=== PATIENT | female | born 1975 | race Caucasian/White ===

== ENCOUNTER 2021-05-01 13:24 | Emergency (ER) | payer OTHER, SELFPAY ==
--- NOTE | 2021-05-01 13:28 | ED.SKABFB ---
HPI - Skin/Abscess/Foreign Bdy General Chief complaint: Wound/Laceration Stated complaint: Laceration to Wrist Time Seen by Provider: 05/01/21 13:26 Source: patient Mode of arrival: ambulatory Limitations: no limitations History of Present Illness HPI narrative: Ms. Oneal is a 45-year-old female patient presenting to the clinic today with complaints of a left wrist laceration that occurred this morning. She reports that she was pushing down the trash and she forgot that there was some broken glass in the trash can and cut it on this. Her tetanus shot is up-to-date state that it was given approximately 3 years ago. Related Data Home Medications Medication Instructions Recorded Confirmed No Home Medications 05/01/21 05/01/21 Allergies Allergy/AdvReac Type Severity Reaction Status Date / Time codeine Allergy Swelling Verified 05/01/21 13:42 of Lip/Tongue/Throat Review of Systems Review of Systems: Pertinent positives per HPI. Patient denies any fever, chills, rash, headache, visual changes, dizziness, cough, runny nose, sore throat, shortness of breath, chest pain, palpitations, nausea, vomiting, diarrhea, constipation, abdominal pain, or any urinary issues. PMFSH Comments At the time of my signature, I reviewed and agree with the nursing past medical, surgical, social, and family history. There is no relevant family history pertinent to the patient complaint. Exam Narrative: General: Well-developed, well nourished, in no apparent distress Cardio: Regular rate and rhythm, s1 and s2 normal, no murmur appreciated. Resp: Clear to auscultation bilaterally, no rhonchi, rales, wheezing or rubs. Integumentary: Jolley, warm, and dry, laceration with mild gaping to the left volar wrist. Bleeding controlled. Laceration portion that is needing repaired is approximately 2-1/2 cm. Total laceration approximately 6 cm. Laceration repair performed in the clinic Course Course Emergency Course: Portions of this record may have been created with voice recognition software. Level of Care: Express Care Visit Vital Signs Vital signs: Vital signs reviewed Procedures Laceration Laceration 1: Date: 05/01/21 Time: 13:50 Site: upper extremity (Left dorsal wrist) Side (If applicable): left Size (cm): 6.0 Description: linear and clean Depth: simple, single layer Amount of anesthesia used (mL): 1 Pre-repair: irrigated ====== Skin Level ====== Skin layer closed with: nylon Size (cm): 4-0 Number of sutures: 3 Technique: simple, interrupted ====== Subcutaneous Layer ====== ====== Muscle Layer ====== ====== Tendon Layer ====== Dressing: Verbal consent obtained for laceration repair. Risk and benefits explained and patient voiced understanding. Area was cleansed with technic care and was prepped and draped using sterile technique. A 4-0 suture on a p3 needle was used to place (3) interrupted sutures bringing the wound edges together- well approximated. Patient tolerated procedure well. REED and sterile dressing applied. MDM - Skin/Abscess/Foreign Bdy MDM Narrative Medical decision making narrative: Simple laceration repair completed in the clinic bring wound edges together approximately using 3 interrupted simple sutures. Tetanus up-to-date Differential Diagnosis Differential diagnosis: Likely abscess of skin or subcutaneous tissue and other (Complex laceration) Discharge Plan Discharge Clinical Impression: Laceration Patient Disposition: Home, Self-Care Condition: Stable Instructions: Antibiotic Form, Laceration (ED) Additional Instructions: Keep wound clean and dry. Leave surgical dressing on for 24 hours May remove after 24 hours and wash with soap and water Sutures out in 7 days. Watch for signs and symptoms of infection such as redness, swelling, increasing pain, or purulent drainage.
[2021-05-01 13:30] VITALS: BP 146/85; PULSE 60; RESP 16; TEMP 37.5; O2SAT 98
== END 2021-05-01 14:04 | disposition home or self-care (01) ==
PROVIDERS: Emergency Provider Nurse Practitioner Family
DX: S61.512A Laceration without foreign body of left wrist, initial encounter (principal); W25.XXXA Contact with sharp glass, initial encounter
CPT/HCPCS: 12002; 99212; G0463

== ENCOUNTER 2021-12-18 17:08 | Emergency (ER) | payer OTHER, SELFPAY ==
--- NOTE | ~2021-12-18 | XR_ITS ---
EXAMINATION: XR hand LT min 3V DATE: 12/18/2021 17:35 INDICATION: Left hand injury and pain. TECHNIQUE: 3 views of left hand were obtained. COMPARISON: None. FINDINGS: Bone alignment is normal. No fracture. There is a punctate calcification palmar to base of second middle phalanx. There is a 7 mm nonaggressive lytic lesion with sclerotic margin in first prox imal phalanx, likely an enchondroma. There is a 6 mm nonaggressive lytic lesion with sclerotic margin in first metacarpal, likely an enchondroma. There is mild osteoarthritis of first carpometacarpal todd int and second metacarpophalangeal joint. IMPRESSION: 1. Punctate calcification palmar to base of second middle phalanx, which may be a chip fracture fragm ent or a chronic finding. 2. Mild polyarticular osteoarthritis. Reviewed, dictated and finalized at location A. IMPRESSION: 1. Punctate calcification palmar to base of second middle phalanx, which may be a chip fracture fragment or a chronic finding. 2. Mild polyarticular osteoarthritis.
[2021-12-18 17:21] VITALS: BP 117/103; PULSE 87; RESP 16; TEMP 36.9; O2SAT 98
--- NOTE | 2021-12-18 17:41 | ED.GENADULT ---
HPI - General Adult General Chief complaint: Extremity Injury, Upper Stated complaint: left fingers smashed in door at work Source: patient Mode of arrival: ambulatory Limitations: no limitations History of Present Illness HPI narrative: Patient presents for evaluation of pain in the second and third digits of her left hand. She indicates she was working today at [employer] at the time of the injury. She was walking through a doorway, pushing the door open with her right hand and attempting to catch the door behind her with her left hand. The 2nd and 3rd digits of the left hand got slammed in the door. Since that time she reports decreased range of motion and pain in the affected digits. She rates her pain 8 out of 10 in severity. No paresthesias. She is right-hand dominant. She took ibuprofen for pain without considerable improvement in her symptoms thereafter. No additional complaints or concerns. Related Data Allergies Allergy/AdvReac Type Severity Reaction Status Date / Time codeine Allergy Swelling Verified 05/01/21 13:42 of Lip/Tongue/Throat Review of Systems Review of Systems: CONSTITUTIONAL: Denies fever, chills, or sweats. EYES: Denies visual changes, redness, or discharge. ENT: Denies rhinorrhea, congestion, sore throat, or otalgia. CARDIOVASCULAR: Denies chest pain, palpitations, or edema. RESPIRATORY: Denies cough or dyspnea. GASTROINTESTINAL: Denies abdominal pain, nausea, vomiting, or diarrhea. GENITOURINARY: Denies dysuria or hematuria. SKIN: Denies rash or itching. MUSCULOSKELETAL: Reports pain in the second and third digits of her left hand NEUROLOGIC: Denies headache, numbness, dizziness, or weakness. PSYCHIATRIC: Denies anxiety or depression. [facility] Past Medical History Medical History (Updated 12/18/21 @ 18:02 by LAURENCE Bocanegra, RAN) Finger fracture No pertinent past medical history Surgical History Surgical History History of cholecystectomy History of hysterectomy Family History Family History Mother Family history non-contributory Social History Social History Smoking status: Current every day smoker Tobacco type: cigars and e-cigarettes/vaping Alcohol intake: current Alcohol use details: rare Substance use: never Living arrangements: with family Gender identity (if verbalized by the patient): Female Sexual Orientation (if Verbalized by the Patient): Lesbian, Hess, or Homosexual Exam Narrative: GENERAL: Well-appearing, well-nourished, and in no acute distress. HEAD: Normocephalic, atraumatic. EYES: PERRLA and EOMI. ENT: Nares clear, no rhinorrhea or epistaxis. Mucous membranes moist. Oropharynx without tonsillar hypertrophy exudate or other lesions. Bilateral TMs pearly barrientos nonbulging NECK: Supple. No adenopathy or masses. No carotid bruits or JVD CHEST: Clear to auscultation. No respiratory distress. No wheezes rales or rhonchi HEART: Regular rate and rhythm. No murmur heard. Normal peripheral pulses. ABDOMEN: Soft, nontender, nondistended, normal active bowel sounds. EXTREMITIES: Decreased range of motion of the PIP and DIP joints of the second and third digits of the left hand. There is tenderness in the proximal, middle, and distal phalanges of the second and third digits of the left hand. There is trace swelling noted. SKIN: Warm, dry, no rash. NEURO: No focal deficits. Alert and oriented x3. PSYCH: Normal mood and affect. Course Course Emergency Course: This is a 46-year-old female who presented for evaluation of pain in the second and third digits following an injury at work. There was questionable fracture of the 2nd middle phalanx. 2nd and 3rd digit were placed in aluminum finger splints and digits were taped together. She had minimal improvement wit
== END 2021-12-18 18:17 | disposition home or self-care (01) ==
PROVIDERS: Emergency Provider Nurse Practitioner
DX: S62.621A Displaced fracture of middle phalanx of left index finger, initial encounter for closed fracture (principal); X58.XXXA Exposure to other specified factors, initial encounter; Y99.0 Civilian activity done for income or pay
CPT/HCPCS: 29130; 73130; 99214; G0463

== ENCOUNTER 2022-07-08 08:29 | Emergency (ER) | payer OTHER, SELFPAY ==
[2022-07-08 08:38] VITALS: BP 119/81; PULSE 88; RESP 20; TEMP 36.7; O2SAT 98
--- NOTE | 2022-07-08 09:04 | ED.GENADULT ---
HPI - General Adult General Chief complaint: Upper Respiratory Infection Stated complaint: sore throat/white on tongue Source: patient and RN notes reviewed History of Present Illness HPI narrative: 47 yo F presents to urgent care with complaints of a sore throat and the feeling her throat is swollen. Pt states this all started yesterday. Pt denies any ear pain, congestion, fevers, chills, dental pain, or trouble breathing. Pt states she feels like she has to clear her throat but can't. Pt denies any chest pain, SOB, or vomiting. Pt has not taken anything for her pain. Related Data Home Medications Medication Instructions Recorded Confirmed lamotrigine 100 mg tablet 100 mg DAILY 07/08/22 levothyroxine 50 mcg tablet 50 mcg DAILY 07/08/22 Allergies Allergy/AdvReac Type Severity Reaction Status Date / Time codeine Allergy Swelling Verified 07/08/22 09:04 of Lip/Tongue/Throat Review of Systems Review of Systems: Pertinent positives and pertinent negatives per HPI. [facility] Past Medical History Medical History (Updated 07/08/22 @ 09:31 by Ade Hines, SIDNEY) Finger fracture No pertinent past medical history Surgical History Surgical History History of cholecystectomy History of hysterectomy Family History Family History Mother Family history non-contributory Social History Social History Smoking status: Current every day smoker Tobacco type: cigars and e-cigarettes/vaping Alcohol intake: current Alcohol use details: rare Substance use: never Living arrangements: with family Gender identity (if verbalized by the patient): Female Sexual Orientation (if Verbalized by the Patient): Lesbian, Hess, or Homosexual Comments At the time of my signature, I reviewed and agree with the nursing past medical, surgical, social, and family history. There is no relevant family history pertinent to the patient complaint. Exam Narrative: GENERAL: This is a well-nourished, well-developed patient, in no apparent distress. HEAD: normocephalic, atraumatic. EYES: Sclera clear/white. Vision is grossly intact. EARS: External ears normal, auditory canals clear and without drainage, TMs normal without perforation. Hearing grossly intact. NOSE: External nose normal with no obvious nasal discharge, nares without redness, no rhinorrhea. THROAT: Mucous membranes moist, posterior pharynx slightly erythremic. Few exudate on left. no abscesses noted. Pt continues to try and clear throat. Has muffled voice. NECK: Neck supple, non-tender without lymphadenopathy, masses or thyromegaly. no anterior swelling noted. CARDIOVASCULAR: Regular rate and rhythm without murmurs, gallops, or rubs. RESPIRATORY: Clear to auscultation. Breath sounds equal bilaterally. No wheezes, rales, stridor, or rhonchi. SKIN: warm, intact with no suspicious lesions or rash, good texture and turgor. NEURO: awake, alert, and oriented to person, place and time. There were no obvious focal neurologic abnormalities. Course Course Level of Care: Express Care Visit Vital Signs Vital signs: Vital Signs Temperature 98.0 F 07/08/22 08:38 Pulse Rate 88 07/08/22 08:38 Respiratory Rate 20 07/08/22 08:38 Blood Pressure 119/81 07/08/22 08:38 Pulse Oximetry 98 07/08/22 08:38 Oxygen Delivery Room Air 07/08/22 08:38 Temperature 98.0 F 07/08/22 08:38 Pulse Rate 88 07/08/22 08:38 Respiratory Rate 20 07/08/22 08:38 Blood Pressure 119/81 07/08/22 08:38 Pulse Oximetry 98 07/08/22 08:38 Oxygen Delivery Room Air 07/08/22 08:38 reviewed. Medical Decision Making MDM Narrative Medical decision making narrative: Pt not drooling. No trismus, tongue elevation, or abscess appreciated. Pt able to swallow prednisone
[2022-07-08] MEDS: predniSONE 20 MG TABLET 60 MG PO (09:14)
--- NOTE | 2022-07-08 09:17 | PC.NURSE ---
Pt given PO prednisone. Pt was able to swallow pills with some difficulty. Pt gagged multiple times, but did not vomit or spit pills out. After multiple drinks of water pt finally felt like she had completely swallowed pills. [employer]RAFTER aware and is speaking with pt.
== END 2022-07-08 09:40 | disposition short-term general hospital (02) ==
PROVIDERS: Emergency Provider Nurse Practitioner Family
DX: J02.9 Acute pharyngitis, unspecified (principal); R13.10 Dysphagia, unspecified; F17.290 Nicotine dependence, other tobacco product, uncomplicated
CPT/HCPCS: 87081; 87880; 99213; G0463; J7512

== ENCOUNTER 2022-09-10 11:49 | Emergency (ER) | payer OTHER, SELFPAY ==
--- NOTE | 2022-09-10 11:53 | ED.EAR ---
HPI - Ear Problem General Chief complaint: Ear Stated complaint: Right Ear Pain Time Seen by Provider: 09/10/22 12:16 Source: patient and RN notes reviewed Mode of arrival: ambulatory Limitations: no limitations History of Present Illness HPI Narrative: 47-year-old female presents with concern for right ear pain. She reports a popping sensation. Reports her ear feels tender when touched. She denies any recent cold symptoms, runny nose, stuffy nose. Denies fever. Denies drainage from the ear. She denies prolonged exposure water MD Complaint: ear pain Related Data Allergies Allergy/AdvReac Type Severity Reaction Status Date / Time codeine Allergy Swelling Verified 07/08/22 09:04 of Lip/Tongue/Throat Review of Systems Review of Systems: CONSTITUTIONAL: Denies malaise, chills, sweats, or fever. EYES: Denies visual changes, redness, or discharge. ENT: Denies rhinorrhea, congestion, sinus pain, and sore throat. Reports right ear pain CARDIOVASCULAR: Denies chest pain, palpitations, or edema. RESPIRATORY: Denies cough. Denies dyspnea. GASTROINTESTINAL: Denies abdominal pain, nausea, vomiting, diarrhea SKIN: Denies rash or itching. MUSCULOSKELETAL: Denies myalgia. NEUROLOGIC: Denies headache. All systems reviewed & are unremarkable except as noted in HPI and below PMFSH Past Medical History Medical History (Updated 09/10/22 @ 12:22 by Lamar Aguirre NP) Finger fracture No pertinent past medical history Surgical History Surgical History History of cholecystectomy History of hysterectomy Family History Family History Mother Family history non-contributory Social History Social History Smoking status: Current every day smoker Tobacco type: cigars and e-cigarettes/vaping Alcohol intake: current Alcohol use details: rare Substance use: never Living arrangements: with family Gender identity (if verbalized by the patient): Female Sexual Orientation (if Verbalized by the Patient): Lesbian, Hess, or Homosexual Comments At time of signature, agree with nursing past medical, surgical, social and family history. There is no relevant family history pertinent to the presenting complaint Exam Narrative: GENERAL: Well-appearing, well-nourished, and in no acute distress. HEAD: Normocephalic EYES: PERRLA, conjunctivae clear ENT: Nares clear. Mucous membranes moist. Right tM pearly barrientos with dull light reflex, sharp reflex on the left; mild tragal tenderness with mild EAC edema, no erythema or drainage noted. Oropharynx not erythematous without lesions. Tonsils not enlarged and without exudate, no drooling, no hoarseness, no trismus, uvula midline. NECK: Supple. No lymphadenopathy CHEST: No respiratory distress, speaks in full sentences. HEART: Regular rate and rhythm. No murmur heard. SKIN: Warm, dry, no rash. NEURO: Alert and oriented x3. PSYCH: Normal mood and affect Course Course Emergency Course: Patient is aware of diagnosis, understands and agrees to treatment plan. Anticipatory guidance given. Patient agrees to follow-up as directed and is aware of reasons to seek care at the emergency department. Portions of this record may have been created with voice recognition software Level of Care: Express Care Visit Vital Signs Vital signs: Reviewed. Medical Decision Making MDM Narrative Medical decision making narrative: Differential diagnosis considered: Echols virus, strep pharyngitis, allergic rhinitis, upper respiratory tract infection, sinusitis, rhinosinusitis, nasopharyngitis. viral pharyngitis, otitis media, otitis externa, otitis effusion, cerumen impaction, foreign body. Exam findings show no acute concerns or changes; patient is non-toxic appearing and is in no distress. Patient is lalitha
[2022-09-10 12:00] VITALS: BP 142/76; PULSE 78; RESP 16; TEMP 36.6; O2SAT 98
== END 2022-09-10 12:27 | disposition home or self-care (01) ==
PROVIDERS: Emergency Provider Nurse Practitioner
DX: H92.01 Otalgia, right ear (principal); F17.290 Nicotine dependence, other tobacco product, uncomplicated
CPT/HCPCS: 99213; G0463

== ENCOUNTER 2022-10-11 10:09 | Emergency (ER) | payer OTHER, SELFPAY ==
[2022-10-11 10:15] VITALS: BP 132/87; PULSE 72; RESP 20; TEMP 36.7; O2SAT 98
--- NOTE | 2022-10-11 10:29 | ED.EXTPRO ---
HPI - Extremity Problem General Chief complaint: Extremity Problem,Nontraumatic Stated complaint: Left arm swollen/pain Time Seen by Provider: 10/11/22 10:41 Source: patient and RN notes reviewed Mode of arrival: ambulatory Limitations: no limitations History of Present Illness HPI Narrative: 47-year-old female presents with concern for left arm pain. She reports pain starts in the mid upper arm, hurts worse when she raises the arm or flexes her bicep. She reports pain radiates up ports her shoulder neck and down towards her elbow. She reports it is tender to touch. 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 She reports she has been using Tylenol and prevent. She denies chest pain, shortness of breath. She reports that her arm feels swollen. She denies fever, aches, chills, sweats MD Complaint: extremity pain Related Data Allergies Allergy/AdvReac Type Severity Reaction Status Date / Time codeine Allergy Swelling Verified 10/11/22 10:24 of Lip/Tongue/Throat Review of Systems Review of Systems: CONSTITUTIONAL: Denies malaise, chills, sweats, or fever. SKIN: Denies rash or itching, open skin, laceration, abrasion, redness, warmth MUSCULOSKELETAL: Reports left arm pain NEUROLOGIC: Denies numbness, weakness All systems reviewed & are unremarkable except as noted in HPI and below PMFSH Past Medical History Medical History (Updated 10/11/22 @ 10:50 by Lamar Aguirre NP) Finger fracture No pertinent past medical history Surgical History Surgical History History of cholecystectomy History of hysterectomy Family History Family History Mother Family history non-contributory Social History Social History Smoking status: Current every day smoker Tobacco type: cigars and e-cigarettes/vaping Alcohol intake: current Alcohol use details: rare Substance use: never Living arrangements: with family Gender identity (if verbalized by the patient): Female Sexual Orientation (if Verbalized by the Patient): Lesbian, Hess, or Homosexual Comments At time of signature, agree with nursing past medical, surgical, social and family history. There is no relevant family history pertinent to the presenting complaint Exam Narrative: GENERAL: Well-appearing, well-nourished, and in no acute distress. HEAD: Normocephalic, atraumatic. EYES: PERRLA, conjunctivae clear NECK: Supple. CHEST: Speaks in full sentences. No respiratory distress. HEART: Regular rate and rhythm. Normal and equal peripheral pulses. EXTREMITIES: Left arm has normal gross strength and sensation, limited range of motion, likely due to pain. No noticeable edema, erythema, or ecchymosis. 5/5 strength with arm flexion, shoulder abduction and adduction. Normal sensation with sensitivity to light touch and pain. Mid upper arm tenderness. No open wounds, no skin tenting, no devitalized tissue or atrophy, no trophic changes, no obvious deformity, alignment normal, nearby joints and structures intact. Distal pulses palpable and equal bilaterally, skin warm, dry, pink. Capillary refill less than 3 seconds. SKIN: Warm, dry, no rash. NEURO: Alert and oriented x3. PSYCH: Normal mood and affect Course Course Emergency Course: Patient is aware of diagnosis, understands and agrees to treatment plan. Anticipatory guidance given. Patient agrees to follow-up as directed and is aware of reasons to seek care at the emergency department. Portions of this record may have been created with voice recognition software Level of Care: Express Care Visit Vital Signs Vital signs: Reviewed. MDM - Extremity (Nontraumatic) MDM Narrative Medical decision making na
== END 2022-10-11 10:55 | disposition home or self-care (01) ==
PROVIDERS: Emergency Provider Nurse Practitioner
DX: S49.92XA Unspecified injury of left shoulder and upper arm, initial encounter (principal); X58.XXXA Exposure to other specified factors, initial encounter; F17.290 Nicotine dependence, other tobacco product, uncomplicated
CPT/HCPCS: 99213; G0463